=== PATIENT | male | born 1985 | race Caucasian/White ===

== ENCOUNTER → 2020-06-16 13:37 | Outpatient (BNVA) | payer OTHER, SELFPAY | PROVIDERS: PCP Internal Medicine Endocrinology, Diabetes & Metabolism; Visit Provider Internal Medicine Gastroenterology | DX: Z76.89 Persons encountering health services in other specified circumstances (principal) ==

== ENCOUNTER → 2020-12-18 12:56 | Outpatient (BNVA) | payer OTHER, SELFPAY | PROVIDERS: PCP Internal Medicine Endocrinology, Diabetes & Metabolism; Visit Provider Internal Medicine Gastroenterology ==

== ENCOUNTER 2024-08-22 12:49 | Outpatient (AMB) | payer OTHER, SELFPAY ==
[2024-08-22 12:51] VITALS: BP 116/76; PULSE 61; O2SAT 97; BMI 28.2
--- NOTE | 2024-08-22 12:51 | A.OFFPC_ITS ---
Vital Signs 08/22/24 12:51 Height 6 ft 4 in Weight 232 lb BMI 28.2 BP 116/76 Blood Pressure Location Lt brachial Position Sitting Pulse 61 Pulse Source Pulse Oximeter Pulse Oximetry (%) 97 Oxygen Delivery Method Room Air Intake Visit Reasons: establish [facility] Heater Operator Helper Required: No Accompanied by: Self / Same As Patient Allergies No Known Allergies Allergy (Verified 08/22/24 13:01) Medication List - Last Reconciled 08/22/24 by GAURAV Vegas lansoprazole 30 mg PO BID Tobacco use date assessed: 08/22/24 Dental Screening Dental Screen Date: 08/22/24 Did you have a dental visit in the last 12 months?: Yes Did you have a dental problem in the last 6 months where you did not have access to dental care?: No Was dental information given to patient?: Patient has dentist HPI [facility] HPI Details Previous PCP: Dr. Pilar Duval Last visit: over a year ago Last PE: same Specialist: GI (Dr. Bartlett) OBGYN:n/a Past medical history: GERD Medications: Lansoprazole Family HX:father 2 uncles and grandfather colon ca, but his father does not carrier the gene, father side, hld, htn, father and uncles had triple bypass, aunt has stroke, father has 5 stent at 40 years old Problem: Patient is a 39 year male was presenting to [facility] Patient reports that he has been getting more tired than usual and would like to get his testosterone checked He reports that he does have a history of asthma but he has been getting sob more frequently Reports that due to his strong familial cardiac history he would like to be evaluated by Cardiology reports quit smoking 12 days ago, but he has been doing zyn to supplement and now he is 3 days into quitting that as well reports being dx with ADHD as a kid, now that he is working behind a computer, he is struggling reports that he would like to be referred to someone who could talk to him about strattera The patient is also requesting a diving board assembler referral: He reports that he has a ongoing rash underneath left axilla The patient reports that his neighbor is a diving board assembler and he told him to put Vaseline and to change his deodorant The patient also reports that he have a small black spot on his bottom lip that has been there for 4 years. Reports that the area did not get any bigger, but he thinks that it faded some. PFSH Medical History GERD (gastroesophageal reflux disease) Asthma Hiatal hernia (~08/22/24) Erosive esophagitis History of esophageal ulcer Surgical History Hx of endoscopy Family History (Updated 08/22/24 @ 21:32 by GAURAV Vegas) Father History of high cholesterol Hx of congenital heart disease Mother Hx of breast cancer Paternal Grandfather Colon cancer Paternal Uncle Colon cancer Father HLD (hyperlipidemia) HTN (hypertension) Heart disease Paternal Uncle Heart disease Social History Household Members: Spouse and Children Housing: House Alcohol intake: current Alcohol intake frequency: holidays/special occasions only Patient Tobacco Use Status: Former Tobacco user e-Cigarette/Vaping Use: Never Used service: No Current occupational status: employed Current occupational exposures/hazards: No Cognitive needs: No Hearing needs: No Vision needs: No Questionnaire PHQ-9 Over the last 2 weeks, how often have you been bothered by any of the following problems? 1. Little interest or pleasure in doing things: not at all 2. Feeling down, depressed, or hopeless: not at all 3. Trouble falling or staying asleep, or sleeping too much: not at all 4. Feeling tired or having little energy: several days 5. Poor appetite or overeating: not at all 6. Feeling bad about yourself - or that you are a failure or have let yourself or your family down: not at all 7. Trouble concentrating on things, such as reading the newspaper or watching television: several days 8. Moving or speaking so slowly that other people could have noticed. Or the opposite - being so fidgety or restless that you have been moving around a lot more than usual: not at all 9. Thoughts that you would be better off or of hurting yourself in some way: not at all Total score: 2 Source: Developed by Drs. Juan Alberto Araujo, Connie Chacon, Alex Santos and colleagues, with an educational senia from [employer]. Thrive Questionnaire Date Thrive assessed: 08/22/24 I am a: Patient What is your living situation today?: I have a steady place to live Within the past 12 months, did the food you bought not last and you didn't have the money to get more?: Never true Within the past 12 months, did you worry whether your food would run out before you got money to buy more?: Never true Do you have trouble paying for medicines?: No Do you have trouble getting transportation to medical appointments?: No Do you have trouble paying your heating and electricity bill?: No Do you have trouble taking care of your child, family member or friend?: No Do you have trouble with day-to-day activities such as bathing, preparing meals, shopping, managing finances, etc.?: No Are you currently unemployed and looking for a job?: No Are you interested in more education?: No Please select the resources that you would like help with: None Currently or been in a relationship where the following occur: No concerns reported THRIVE Score: 0 AUDIT C Alcohol Use Questionnaire (AUDIT-C) 1. How often do you have a drink containing alcohol?: 2-4 times a month 2. How many drinks containing alcohol do you have on a typical day when you are drinking?: 1 or 2 3. How often do you have six or more drinks on one occasion?: Less than monthly Total Score: 3 LEWIS-7 AMB Questionnaire LEWIS-7 Date LEWIS - 7 assessed: 08/22/24 Feeling nervous, anxious, or on edge: 0 = Not at all Not being able to stop or control worryin = Not at all Worrying too much about different things: 0 = Not at all Trouble relaxin = Not at all Being so restless that it is hard to sit still: 0 = Not at all Becoming easily annoyed or irritable: 0 = Not at all Feeling afraid as if something awful might happen: 0 = Not at all Total LEWIS-7 score (0-4 normal; 5-9 mild; 10-14 moderate; 15-21 severe): 0 Source: Developed by Drs. Juan Alberto Araujo, Connie Chacon, Alex Santos and colleagues, with an educational senia from [employer]. LEWIS-7 Assessment Billing LEWIS-7 Assessment Tool: LEWIS-7 Assessment 47428 Review of Systems Const Details: Denies chills, +fatigue, Denies fever(s), Denies headache(s) and Denies weakness HEENT Denies change in vision, Denies dizziness, Denies headache(s), Denies hearing loss, Denies nasal congestion, Denies sinus pain, Denies sinus pressure and Otilio es sore throat other: small black area on bottom lip Card Denies chest pain, Denies lightheadedness, Denies other (palpitations) Resp Denies cough, +dyspnea (hx of asthma, but feels like he is getting sob quick than he did before) and Denies wheezing GI Denies abdominal pain, Denies melena, Denies hematochezia, Denies change in bowel habits, Denies dyspepsia and Denies nausea Denies hematuria and Denies dysuria Musc Denies abnormal gait, Denies myalgias, Denies arthralgias, Denies numbness and Denies tingling Skin/Breast Denies rash, Denies unusual bruising and Denies wounds Neuro Denies abnormal gait, Denies dizziness, Denies headache(s), Denies memory loss, Denies numbness, Denies Sensory deficit (Neuro), Denies tingling and Denies weakness Psych Denies anxiety, Denies depression and Denies memory loss Endo Denies cold intolerance, Denies fatigue, Denies heat intolerance, Denies polydipsia and Denies polyuria Jose/Lymph Denies easy bleeding and Denies easy bruising Aller/Immun Denies wheezing Physical exam (Primary Care) Vital Signs: Last Vital Signs Pulse 61 08/22/24 12:51 BP 116/76 08/22/24 12:51 Pulse Ox 97 08/22/24 12:51 Oxygen Delivery Method Room Air 08/22/24 12:51 BMI result Body Mass Index 28.2 Tobacco/Smoking Status: Tobacco use Status Tobacco use date assessed 08/22/24 08/22/24 12:54 Patient Tobacco Use Status Former Tobacco user 08/22/24 12:54 e-Cigarette/Vaping Use Never Used 08/22/24 12:58 PHQ-9: PHQ-9 Score PHQ-9: Total score 2 08/22/24 13:25 Thrive Assessment: Date of Thrive Assessment Date Thrive assessed 08/22/24 08/22/24 12:54 Currently or been in a relationship where the following occur: No concerns reported Const Other: General: no acute distress, well developed, alert and awake Nutritional Appearance: well nourished Orientation/consciousness: patient oriented x3 [facility] Head: Yes normocephalic and Yes atraumatic Ears: hearing grossly normal bilaterally and TM's normal bilaterally General nose exam: Normal external nose present and Normal nares present Mouth: Normal oral and palatal mucosa present and moist mucous membranes Teeth and gingiva: dentition normal Throat: Yes oropharynx normal Eyes Pupils: Equal, round and reactive pupils present and Pupil accommodation reflex normal EOM: EOMs intact bilaterally Neck Neck: Yes normal visual inspection, Yes no lymphadenopathy and Yes trachea midline Thyroid: Thyroid normal Resp Effort & Inspection: normal respiratory effort Auscultation: clear to auscultation bilaterally Cardio Rate: regular rate Rhythm: regular rhythm Heart sounds: S1 normal heart sound present, S2 normal heart sound present, no gallops, no murmurs and no rubs GI Palpation (GI):abdomen soft and nontender to palpation Auscultation: normal bowel sounds General: Yes no CVA tenderness Back/Spine/Pelvis Back: no CVA tenderness Cervical Spine: cervical ROM normal and No Cervical spine tenderness Thoracic/Lumbar Spine: thoraco-lumbar ROM normal, No pain with thoraco-lumbar ROM, No thoracic spinal tenderness and No lumbar spinal tenderness Skin General: warm and dry. Normal skin color. Normal skin turgor Lesions: no lesions Nails: normal Neuro General: patient oriented x3, gait normal Cranial nerves: Yes Equal, round and reactive pupils present Cognition (Neuro): normal cognition Gait exam (Neuro): Normal gait present Extrem General: Yes normal to inspection, No edema and No calf tenderness Psych Appearance: grossly normal Affect: normal affect Attitude: cooperative Thought process: Normal thought process present Coding Level of Care Code New Pt Level 4 (84479) Diagnoses Gastroesophageal reflux disease with esophagitis, unspecified whether hemorrhage K21.00 Esophagitis presence: with esophagitis Esophagitis bleeding: unspecified whether hemorrhage Asthma, unspecified asthma severity, unspecified whether complicated, unspecified whether persistent J45.909 Asthma severity: unspecified severity Asthma persistence: unspecified Asthma complication type: unspecified Hiatal hernia K44.9 Familial heart disease I51.89 Eczema intertrigo L30.4 Fatigue, unspecified type R53.83 Fatigue type: unspecified Disorder of lip K13.0 Attention deficit hyperactivity disorder (ADHD), unspecified ADHD type F90.9 Attention deficit-hyperactivity disorder type: unspecified Additional Codes LEWIS-7 Assessment Billing - LEWIS-7 Assessment Tool: LEWIS-7 Assessment 98846 ([id number]) Time Spent (min) 42 Assessment & Plan Assessment & Plan (1) GERD (gastroesophageal reflux disease): Code(s): K21.9 - Gastro-esophageal reflux disease without esophagitis Category: Medical Qualifiers: Esophagitis presence: with esophagitis Esophagitis bleeding: unspecified whether hemorrhage Qualified Code(s): K21.00 - Gastro-esophageal reflux disease with esophagitis, without bleeding Plan: The patient used to be followed by GI but have not followed up in a while. He has been taking Lansoprazole 30 mg daily with positive effect. Reinforced dietary restriction. Refrain from eating close to bed time (2) Asthma: Code(s): J45.909 - Unspecified asthma, uncomplicated Category: Medical Qualifiers: Asthma severity: unspecified severity Asthma persistence: unspecified Asthma complication type: unspecified Qualified Code(s): J45.909 - Unspecified asthma, uncomplicated Plan: The patient reports hx of asthma. Reports that this only bothers him when he is sick with a respiratory illness Albuterol sulfate 90 mcg/actuation 2 pffus inh Q4-6H PRN ordered (3) Hiatal hernia: Onset Date: ~08/22/24 Code(s): K44.9 - Diaphragmatic hernia without obstruction or gangrene Category: Medical Plan: The patient reports that he was seeing GI and they wanted him to do surgery but he changed his eating habits and loss some weight and his symptoms completely improved so he decided not to go ahead with the surgery (4) Familial heart disease: Code(s): I51.89 - Other ill-defined heart diseases Category: Medical Plan: The patient reports that he father had 5 stents by the time he was 40 years old and all of his paternal uncles had triple bypass Will refer the patient to cardiology for a cardiac evaluation (5) Eczema intertrigo: Code(s): L30.4 - Erythema intertrigo Category: Medical Plan: He reports a hx of eczema. He c/o rash in left axilla that is consistent with fungal. The patient reports that it is itchy. clotrimazole-betamethasone 1-0.05% topical BID (6) Fatigue: Code(s): R53.83 - Other fatigue Category: Medical Qualifiers: Fatigue type: unspecified Qualified Code(s): R53.83 - Other fatigue Plan: Testosterone levels ordered along with other labs (7) Disorder of lip: Code(s): K13.0 - Diseases of lips Category: Medical Plan: small dark spot to bottom lip. Reports that this area been there for about 4 years now. The size remains the same but the color faded some. The patient is requesting to see dermatology. Referral was placed (8) ADHD (attention deficit hyperactivity disorder): Code(s): F90.9 - Attention-deficit hyperactivity disorder, unspecified type Category: Medical Qualifiers: Attention deficit-hyperactivity disorder type: unspecified Qualified Code(s): F90.9 - Attention-deficit hyperactivity disorder, unspecified type Plan: reports being dx with ADHD as a kid, now that he is working behind a computer, he is struggling reports that he would like to be referred to someone who could talk to him about strattera Orders: Orders Comprehensive [place]. Panel Fast Today J45.909 - Unspecified asthma, uncomplicated, K21.9 - Gastro-esophageal reflux disease without esophagitis, R53.83 - Other fatigue, Z00.00 - Encounter for general adult medical examination without abnormal findings Glucose Fasting Today J45.909 - Unspecified asthma, uncomplicated, K21.9 - Gastro-esophageal reflux disease without esophagitis, R53.83 - Other fatigue, Z00.00 - Encounter for general adult medical examination without abnormal findings TSH reflex Free T4 Today J45.909 - Unspecified asthma, uncomplicated, K21.9 - Gastro-esophageal reflux disease without esophagitis, R53.83 - Other fatigue, Z00.00 - Encounter for general adult medical examination without abnormal findin gs UA CC w/rflx Micro + Cult Today J45.909 - Unspecified asthma, uncomplicated, K21.9 - Gastro-esophageal reflux disease without esophagitis, R53.83 - Other fatigue, Z00.00 - Encounter for general adult medical examination without abnormal findings Lipid Panel Today J45.909 - Unspecified asthma, uncomplicated, K21.9 - Gastro- esophageal reflux disease without esophagitis, R53.83 - Other fatigue, Z00.00 - Encounter for general adult medical examination without abnormal findings Complete Blood Count Auto Diff Today J45.909 - Unspecified asthma, uncomplicated, K21.9 - Gastro-esophageal reflux disease without esophagitis, R53.83 - Other fatigue, Z00.00 - Encounter for general adult medical examination without abnormal findings Vitamin D 25-OH Total Today J45.909 - Unspecified asthma, uncomplicated, K21.9 - Gastro-esophageal reflux disease without esophagitis, R53.83 - Other fatigue, Z00.00 - Encounter for general adult medical examination without abnormal findings PSA,Total (Free>4and<10) Today J45.909 - Unspecified asthma, uncomplicated, K21.9 - Gastro-esophageal reflux disease without esophagitis, R53.83 - Other fatigue, Z00.00 - Encounter for general adult medical examination without abnormal findings Referrals Psychiatry Referral F90.9 - Attention-deficit hyperactivity disorder, unspecified type Cardiology Referral I51.89 - Other ill-defined heart diseases Dermatology Referral K13.0 - Diseases of lips, L30.4 - Erythema intertrigo Medications: New clotrimazole-betamethasone 1-0.05 % 1 appl topical BID 15 grams 1RF albuterol sulfate 90 mcg/actuation 2 puffs inhalation Q4-6H PRN 8.5 grams 2RF shortness of breath or wheezing lansoprazole 30 mg PO DAILY 90 caps 2RF Discontinued lansoprazole Discontinued Reason: Duplicate 30 mg PO BID 180 caps 0RF K21.9 - Gastro- esophageal reflux disease without esophagitis
--- OUTSIDE RECORDS SUMMARY | 2024-08-22 15:40 | XMS_ITS ---
Author Organization [facility] Address [address] [place] [address] Care Team Providers Care Retail Service Representative Name Role Phone BROOKLYN BEAVER Unavailable [phone] Encounters Encounter Location Date Provider Diagnosis [facility] [address] [place] [address] 04/16/2024 BROOKLYN BEAVER PLAN OF TREATMENT No Information Progress Notes * JOYCE JarredwinDOB:1985 (39 yo M)Acc No.[id number]:04/16/2024 Progress Notes Patient:??Brayden NEWMAN Provider:??BROOKLYN BEAVER PA-C :1985?Age:38 Y?Sex:Ma le Date:04/16/2024 Address:[address] [id number] Subjective: * Chief Complaints: * ? * Medical History:?? Objective: Assessment: Plan: * Treatment: * Images: Billing Information: * Visit Code:?? * Procedure Codes:?? * Sign off status: Pending * Provider:??BROOKLYN BEAVER PA-C Date:??
--- OUTSIDE RECORDS SUMMARY | 2024-08-22 15:40 | XMS_ITS ---
Author Organization [facility], [facility] Address [address] [place] [id number] Care Team Providers Care Supervisor Agency Appointments Name Role Phone DEX DUVAL Primary Care Provider [phone] ALLERGIES No Known Allergies REASON FOR VISIT Annual CPE MEDICATIONS Medication SIG (Take, Route, Frequency, Duration) Notes Start Date End Date Status Albuterol Sulfate HFA 108 (90 Base) MCG/ACT 1 puff as needed Inhalation every 4 hrs Active Lansoprazole 30 MG 1 tablet Orally Once a day Active Zithromax Z-Calos 250 MG 2 tabs once on da y one, then 1 tab once daily for remaining until gone Orally once a day for 5 days 05/27/2023 Active SOCIAL HISTORY Tobacco Use: Social History Observation Description Date Details (start date - stop date) Former Smoker NA - NA Sex Assigned At : Social History Observation Description Sex Assigned At Male Tobacco Use/Smoking Question Answer Notes Tobacco use: former smoker How long has it been since you last smoked? > 10 years Section Notes: Lives in [place], [place] with & children Encounters Encounter Location Date Provider Diagnosis [facility], [address] [phone] 09/19/2023 DEX DUVAL Annual physical exam Z00.00 ASSESSMENTS Encounter Date Diagnosis Assessment Notes Treatment Notes Treatment Clinical Notes Section Notes 09/19/2023 Annual physical exam (ICD-10 - Z00.00) PLAN OF TREATMENT Next Appt Details Follow Up: PLEASE CALL PT TO REBOOK CPE, Reason: Progress Notes * SAM COOKDOB:1985 (38 yo M)Acc No.[id number]:09/19/2023 Progress Note Patient:??JOYCE SAM Provider:??Dex Duval DNP :1985?Age:38 Y?Sex:Ronak le Date:09/19/2023 Phone: Address:[address], [place], [id number] Subjective: * Chief Complaints: * ?Annual CPE * HPI: ?Patient Care Team:? Providers/Specialists: No others at this time. ?Visit info:? Jarred presents to office today for his annual physical exam. * Medical History:?? * Surgical History:?? * Ocular Surgical History:?? * Hospitalization/Major Diagno stic Procedure:??Diverticulitis - 1 week @ [facility]. 04/2022 * Family History:??Father: ali ve, Pericarditis, Stents, Melanoma.??Mother: alive, Breast CA.??Paternal Grandfather: , Heart attack.??Paternal Grandmother: , Heart disease.??Maternal Grandmother: , Dementia.??Sister: alive, No known health concerns.??1 son(s) , 1 daughter(s) - healthy. .?? Son w/asthma. * Social History:?Tobacco Use:?Tobacco Use/Smoking?Tobacco use:??former smoker ?How long has it been since you last smoked???> 10 years ?Drugs/Alcohol:?Do you smoke marijuana?: Admits - Gummies for sleep occasionally. ?Do you drink alcohol?: Yes, Socially. ?Lives in [place], [place] with & children. * Medications:??TakingAlbutero l Sulfate HFA 108 (90 Base) MCG/ACT Aerosol Solution 1 puff as needed Inhalation every 4 hrs Lansoprazole 30 MG Tablet Delayed Release Disintegrating 1 tablet Orally Once a day Zithromax Z-Calos 250 MG Tablet 2 tabs once on day one, then 1 tab once daily for remaining until gone Orally once a day Taking Albuterol Sulfate HFA 108 (90 Base) MCG/ACT Aerosol Solution 1 puff as needed Inhalation every 4 hrs Taking Lansoprazole 30 MG Tablet Delayed Release Disintegrating 1 tablet Orally Once a day Taking Zithromax Z-Calos 250 MG Tablet 2 tabs once on day one, then 1 tab once daily for remaining until gone Orally once a day * Allergies:??N.K.D.A.no[Aller gies Verified] Objective: Assessment: * Assessment: 1.??Annual physical exam - Z (Primary)?? Plan: * Treatment: * Procedure Codes:?? * Preventive Medicine:?Last CPE: 1 year ago @ [facility] ?Colonoscopy: No ?Endoscopy: Yes, recently for Diverticulitis ?Flu Vac: No ?Covid Vac: Yes & 1 booster. * Follow Up:??PLEASE CALL PT T O REBOOK CPE Care Plan: * Problems:?? * Billing Information: * Visit Code:?? * Procedure Codes:?? * Sign off status: Completed true * Provider:??Dex Duval DNP Date:??0 09/19/2023 History and Physical Notes * HPI (History of Present Illness) Category Sub-Category Detail Notes Category Not es Patient Care Team Providers/ Specialists: No others at this time Visit info Jarred presents t o office today for his annual physical exam.
--- OUTSIDE RECORDS SUMMARY | 2024-08-22 15:40 | XMS_ITS | Clinical Summary ---
Author Organization [facility] Address [address] [place] [address] Care Team Providers Care Inflated Ball Molder Name Role Phone Jax Bocanegra MD Primary Care Provider Unavail able Surgical History Surgery Date Site/Laterality Comments UPPER GASTROINTESTINAL ENDOSCOPY 12/24/13 Dr Chahal PROCEDURE: [place] UPPER GI ENDOSCOPY PERFORMED; COMMENT: severe distal esophagitis MULTIPLE TOOTH EXTRACTIONS PROCEDURE: HISTORICAL DENTAL EXTRACTION ESOPHAGOGASTRODUODENOSCOPY 06/16/2015 PROCEDURE: [place] ESOPHAGOGASTRODUODENOSCOPY TRANSORAL DIAGNOSTIC; COMMENT: Grade D esophagitis distal esophagus, hiatal hernia Medical History Medical History Date Comments Unspecified asthma(493.90) 01/10/2007 DX:Un specified asthma(493.90) Allergic rhinitis, cause unspecified 01/10/2007 DX:Allergic rhinitis, cause unspecified Substance abuse ([facility]) 12/16/2010 DX:Sub stance abuse ([facility]) Esophageal reflux DX:Esophageal reflux Family History Medical History Relation Name Comments Other: Other Father stent, high cho lesterol Breast cancer Mother Other: Other Mother alive and well Blindness Neg Hx Cataracts Neg Hx Glaucoma Neg Hx Macular degeneration Neg Hx Strabismus Neg Hx Relation Name Status Comments Father Alive Mother Alive Social History Tobacco Use Types Packs/Day Years Used Date Smoking Tobacco: Former Cigarettes 1 7.6 1 - 01/13/2011 Smokeless Tobacco: Never Alcohol Use Standard Drinks/Week Comments Yes 0 (1 standard drink = 0.6 oz pur e alcohol) Sex and Gender Information Value Date Recorded Sex Assigned at Not on file Legal Sex Male 10:26 AM EST Gender Identity Not on file Sexual Orientation Not on file Obstetrics History Last Filed Vital Signs Vital Sign Reading Time Taken Comments Blood Pressure 122/67 07/15/2022 8:09 AM EST Pulse 62 07/15/2022 8:09 AM EST Temperature - - Respiratory Rate - - Oxygen Saturation - - Inhaled Oxygen Concentration - - Weight 103 kg (226 lb 8 oz) 07/15/2022 8:[address] Height 193 cm (6' 4 ) 07/15/2022 8:09 AM EST Body Mass Index 27.57 07/15/2022 8:09 AM EST Plan of Treatment Health Maintenance Due Date Last Done Comments Hepatitis A Vaccines (3 of 4 - Hep A Twinrix risk 4-dose series) 01/27/2011 01/13/2011, 12/23/2010 Hepatitis B Vaccines (3 of 4 - Hep B Twinrix 4-dose series) 01/27/2011 01/13/2011, 12/23/2010 Pneumococcal Vaccine: Pediatrics (0 to 5 Years) and At-Risk Patients (6 to 64 Years) (2 of 2 - PCV) 02/03/2019 02/03/2018 Cholesterol Screening (Lipid Panel) 05/25/2022 Depression Screening 05/25/2022 HIV Screening 05/25/2022 Hepatitis C Screening 05/25/2022 Social Influencers of Health Screening 05/25/2022 COVID-19 Vaccine ( season) 2024 Influenza Vaccine (#1) 2024 0, 04/11/2015, 04/22/2011, Additional history exists DTaP,Tdap,and Td Vaccines (3 - Td or Tdap) 04/21/2030 04/21/2020, 12/16/2010 HIB Vaccines Aged Out No longer eligi ble based on patient's age to complete this topic HPV Vaccines Aged Out No longer eligi ble based on patient's age to complete this topic IPV Vaccines Aged Out No longer eligi ble based on patient's age to complete this topic MMR Vaccines Aged Out No longer eligi ble based on patient's age to complete this topic Meningococcal ACWY Vaccine Aged Out N o longer eligible based on patient's age to complete this topic Meningococcal B Vacine Aged Out No lo nger eligible based on patient's age to complete this topic RSV Immunization Patients Under 20 months Aged Out No longer eligible based on patient's age to complete this topic Varicella Vaccines Aged Out No longer eligible based on patient's age to complete this topic Care Teams Inflated Ball Molder Relationship Specialty Start Date End Date Jax Bocanegra MD PCP - General Internal Medicine 01/27/15
--- OUTSIDE RECORDS SUMMARY | 2024-08-22 15:40 | XMS_ITS ---
Author Organization [facility], [facility] Address [address] [place] [phone] Care Team Providers Care Sql Report Writer Name Role Phone DEX CONNORS Primary Care Provider [phone] Reina Zhou Unavailable [phone] ALLERGIES No Known Allergies REASON FOR VISIT CPE MEDICATIONS Medication SIG (Take, Route, Frequency, Duration) Notes Start Date End Date Status Albuterol Sulfate HFA 108 (90 Base) MCG/ACT 1 puff as needed Inhalation every 4 hrs Active Zithromax Z-Calos 250 MG 2 tabs once on da y one, then 1 tab once daily for remaining until gone Orally once a day for 5 days 05/27/2023 Active Lansoprazole 30 MG 1 tablet Orally Once a day Active SOCIAL HISTORY Tobacco Use: Social History Observation Description Date Details (start date - stop date) Former Smoker NA - NA Sex Assigned At : Social History Observation Description Sex Assigned At Male Tobacco Use/Smoking Question Answer Notes Tobacco use: former smoker How long has it been since you last smoked? > 10 years Section Notes: Lives in [place], [place] with & children Encounters Encounter Location Date Provider Diagnosis [address] [phone] 09/06/2023 Reina Zhou PLAN OF TREATMENT No Information Progress Notes * SAM COOKDOB:1985 (39 yo M)Acc No.[id number]:09/06/2023 Progress Note Patient:??SAM COOK Provider:??Reina Zhou DNP :1985?Age:38 Y?Sex:Ma le Date:09/06/2023 Phone: Address:[address], [id number] Pcp:DEX CONNORS Subjective: * Chief Complaints: * ?1. CPE. * HPI: ?Patient Care Team:? Providers/Specialists: No others at this time. * Medical History:??Hyperlipid emia, Polyarthritis, Diverticulitis. * Hospitalization/Major Diagno stic Procedure:??Diverticulitis - 1 week @ [facility]. 04/2022. * Family History:??Father: ali ve, Pericarditis, Stents, Melanoma.??Mother: alive, Breast CA.??Paternal Grandfather: , Heart attack.??Paternal Grandmother: , Heart disease.??Maternal Grandmother: , Dementia.??Sister: alive, No known health concerns.??1 son(s) , 1 daughter(s) - healthy. .?? Son w/asthma. * Social History:?Tobacco Use:??Tobacco Use/Smoking??Tobacco use:??former smoker,??How long has it been since you last smoked???> 10 years.?Drugs/Alcohol:??Do you smoke marijuana?: Admits - Gummies for sleep occasionally. Do you drink alcohol?: Yes, Socially. ?Lives in [place], [place] with & children. * Medications:??Taking Albuter ol Sulfate HFA 108 (90 Base) MCG/ACT Aerosol Solution 1 puff as needed Inhalation every 4 hrs , Taking Lansoprazole 30 MG Tablet Delayed Release Disintegrating 1 tablet Orally Once a day , Taking Zithromax Z-Calos 250 MG Tablet 2 tabs once on day one, then 1 tab once daily for remaining until gone Orally once a day * Allergies:??N.K.D.A. Objective: Assessment: Plan: * Treatment: * Preventive Medicine:?Last CPE: 1 year ago @ [facility] Colonoscopy: No Endoscopy: Yes, recently for Diverticulitis Flu Vac: No Covid Vac: Yes & 1 booster. Care Plan: * Problems:?? * Billing Information: * Visit Code:?? * Procedure Codes:?? * Sign off status: Pending * Provider:??Reina Zhou DNP Date:??05/2024 History and Physical Notes * HPI (History of Present Illness) Category Sub-Category Detail Notes Category Not es Patient Care Team Providers/ Specialists: No others at this time
--- OUTSIDE RECORDS SUMMARY | 2024-08-22 15:41 | XMS_ITS | Patient Health Record ---
Author Organization [facility] Address [address] [place] [phone] Care Team Providers Care Foreign Exchange Services Manager Name Role Phone DEX CONNORS Primary Care Provider Reina Zhou Unavailable [phone] ALLERGIES No Known Allergies REASON FOR REFERRAL No Information MEDICATIONS Medication SIG (Take, Route, Frequency, Duration) Notes Start Date End Date Status Albuterol Sulfate HFA 108 (90 Base) MCG/ACT 1 puff as needed Inhalation every 4 hrs Active Azithromycin 250 MG as directed Orally 2 tabs once on day one, then take1 tab orally once daily until completed for 5 days 10/10/2023 Active Lansoprazole 30 MG 1 tablet Orally [...] > 10 years Section Notes: Lives in [place], [place] with & children Lives in [place] with & children Lives in [place] with & children Lives in [place] with & children Lives in [place] with & children Lives in [place] with & children Lives in [place] with & children PROBLEMS Problem Type ICD Code Onset Dates Problem Status W/U Status Risk SNOMED Code Notes Problem Polyarthritis, unspecified (M13.0) Active confirmed Polyarth ritis (857124225) Problem Hypercholesterolemia (E78.00) Active confirmed Hypercholestero lemia (83280749) Encounters Encounter Location Date Provider Diagnosis [facility] [place] [phone] 09/06/2023 Reinakavita Zhou [facility] [address] [place] [phone] 09/19/2023 DEX CONNORS Annual physical exam Z00.00 [facility] [address] [place] [phone] 10/10/2023 DEX CONNORS ASSESSMENTS Encounter Date Diagnosis Assessment Notes Treatment Notes Treatment Clinical Notes Section Notes 09/19/2023 Annual physical exam (ICD-10 - Z00.00) PLAN OF TREATMENT Pending Test Test Name Order Date Thyroid Panel With TSH 07/16/2022 Uric Acid, Serum 07/16/2022 Hemoglobin A1c 07/16/2022 Dehydroepiandrosterone (DHEA) 07/16/2022 Vitamin D, 25-Hydroxy 07/16/2022 Sex Horm Binding Glob, Serum 07/16/2022 Testosterone,Free and Total 07/16/2022 Insulin, Free and Total, Serum Apo A1 + B + Ratio 07/16/2022 Lipid Panel 07/16/2022 Comp. Metabolic Panel (14) 07/16/2022 CBC 07/16/2022 Insurance Providers Payer Name Payer Address Payer Phone Subscriber Number Group Number Insured Name Patient Relationship to Insured Coverage Start Date Coverage End Date [address] [place] [address] [place] [phone] [id number] SAM COOK Self - patient is the insured 0 MEDICAL (GENERAL) HISTORY Medical History History ICD Code Hyperlipidemia Polyarthritis Diverticulitis Hospitalization History Reason Date(Month/Year) Diverticulitis - 1 week @ [facility]
--- OUTSIDE RECORDS SUMMARY | 2024-08-22 15:41 | XMS_ITS ---
Author Organization [facility], [facility] Address [address] [place] [phone] Care Team Providers Care Cutter Helper Name Role Phone DEX CONNORS Primary Care Provider REASON FOR VISIT Strep Throat MEDICATIONS Medication SIG (Take, Route, Fr equency, Duration) Notes Start Date End Date Status Azithromycin 250 MG as directed Orally 2 tabs once on day one, then take1 tab orally once daily until completed for 5 days 10/10/2023 Active SOCIAL HISTORY Sex Assigned At : Social History Observation Description Sex Assigned At Male Encounters Encounter Location Date Provider Diagnosis [address] [phone] 10/10/2023 DEX CONNORS PLAN OF TREATMENT Medication Medication Name Sig Start Date Stop Date Notes Azithromycin 250 MG as directed Orally 2 tabs once on day one, then take1 tab orally once daily until completed for 5 days 10/10/2023 Progress Notes * JOYCESAMDOB:1985 (38 yo M)Acc No.[id number]:10/10/2023 Patient:??SAM COOK :1985?Age:38 Y?Sex:Ronak boaz Phone: Address:[address] [place] [address] * Refills?? Start Azithromycin Tablet, 250 MG, Orally, 6, as directed, 2 tabs once on day one, then take1 tab orally once daily until completed, 5 days, Refills=0 * true * Date:??
--- OUTSIDE RECORDS SUMMARY | 2024-08-22 15:41 | XMS_ITS | Patient Health Record ---
Author Organization [facility] Address [address] [place] [address] Care Team Providers Care Screen Printing Loader Unloader Name Role Phone BROOKLYN BEAVER Unavailable [phone] REASON FOR REFERRAL No Information Encounters Encounter Location Date Provider Diagnosis [facility] [address] [place] [address] 04/16/2024 BROOKLYN BEAVER PLAN OF TREATMENT No Information Insurance Providers Payer Name Payer Address Payer Phone Subscriber Number Group Number Insured Name Patient Relationship to Insured Coverage Start Date Coverage End Date [facility] [address] [facility] [place] [id number] Brayden Newman Self - patient is the insured
== END 2024-08-22 13:35 | disposition home or self-care (01) ==
PROVIDERS: PCP Internal Medicine Endocrinology, Diabetes & Metabolism
DX: K21.00 Gastro-esophageal reflux disease with esophagitis, without bleeding (principal); J45.909 Unspecified asthma, uncomplicated; K44.9 Diaphragmatic hernia without obstruction or gangrene; I51.89 Other ill-defined heart diseases; L30.4 Erythema intertrigo; R53.83 Other fatigue; K13.0 Diseases of lips; F90.9 Attention-deficit hyperactivity disorder, unspecified type

== ENCOUNTER → 2024-08-22 12:49 | Outpatient (BNVA) | payer OTHER, SELFPAY | PROVIDERS: PCP Internal Medicine Endocrinology, Diabetes & Metabolism | DX: K21.00 Gastro-esophageal reflux disease with esophagitis, without bleeding (principal); J45.909 Unspecified asthma, uncomplicated; K44.9 Diaphragmatic hernia without obstruction or gangrene; I51.89 Other ill-defined heart diseases; L30.4 Erythema intertrigo; R53.83 Other fatigue; K13.0 Diseases of lips; F90.9 Attention-deficit hyperactivity disorder, unspecified type | CPT/HCPCS: 96127 ==

== ENCOUNTER 2024-09-11 07:32 | Outpatient (REF) | payer OTHER, SELFPAY ==
[2024-09-11 07:56] LABS: MANUAL DIFF FLAG NO
[2024-09-11 08:06] LABS: Basophils Percent Auto 0.6 % (0-2); Eosinophils Absolute Auto 0.2 X10*3/uL (0.0-0.4); Hematocrit 35.9 % (42.0-52.0); Hemoglobin 10.5 g/dl (14.0-18.0); Imm Gran Abs Auto 0.01 X10*3/uL (0.00-0.03); Imm Gran Pct Auto 0.2 % (0.0-0.4); Lymphocytes Absolute Auto 1.9 X10*3/uL (1.2-4.9); Lymphocytes Percent Auto 38.2 % (20-40); Mean Corpuscular HGB Conc 29.2 g/dl (31.0-36.0); Mean Corpuscular Hemoglobin 22.5 pg (27.0-33.0); Mean Corpuscular Volume 76.9 fL (80.0-98.0); Mean Platelet Volume 10.3 fL (9.4-12.4); Monocytes Absolute Auto 0.5 X10*3/uL (0.1-1.2); Monocytes Percent Auto 10.2 % (2-11); Neutrophils Absolute Auto 2.4 x10*3/uL (2.0-8.3); Neutrophils Percent Auto 46.8 % (45-73); Platelet Count 276 X10*3/uL (160-400); Red Blood Count 4.67 X10*6/uL (4.60-5.80); Red Cell Distribution Width 16.7 % (11.0-16.0)
[2024-09-11 08:12] LABS: Appearance Urine Turbid; Color Urine Yellow; Glucose Urine UA Negative (Negative); Leukocyte Esterase Urine Negative (Negative); Nitrite Urine Negative (Negative); PH 5.5 (5.0-9.0); Urine Blood Negative (Negative); Urine Ketones Negative (Negative); Urine Protein Negative (Neg-Trace)
[2024-09-11 08:52] LABS: Alanine Aminotransferase 19 U/L (0-40); Albumin Level 4.2 g/dL (3.5-5.0); Alkaline Phosphatase 79 U/L (39-117); Anion Gap 13 (12-20); Aspartate Amino Transferase 19 U/L (5-37); Bilirubin Total 0.6 mg/dL (0.0-1.0); Blood Urea Nitrogen 16 mg/dL (9-16); Calcium 8.8 mg/dL (8.4-10.2); Carbon Dioxide 25 mmol/L (22-29); Chloride 109 mmol/L (96-108); Cholesterol 192 mg/dL (<200); Estimated Glomerular Filt Rate > 60; Glucose Fasting 96 mg/dL (60-99); HDL Cholesterol 46 mg/dL (>40); LDL Cholesterol Calculated 116 mg/dL (<100); Potassium 4.5 mmol/L (3.3-5.1); Sodium 142 mmol/L (135-145); Total Protein 7.7 g/dL (6.5-8.0); Triglycerides 151 mg/dL (<150)
[2024-09-11 08:58] LABS: PSA,Total (Free>4and<10) 0.58 ng/mL (0.00-4.00)
[2024-09-11 09:06] LABS: Vitamin D 25-OH Total 47.9 ng/mL (>30)
== END 2024-09-11 07:33 | disposition home or self-care (01) ==
LOC: HO.LAB 07:32
DX: Z00.00 Encounter for general adult medical examination without abnormal findings (principal); K21.9 Gastro-esophageal reflux disease without esophagitis; J45.909 Unspecified asthma, uncomplicated; R53.83 Other fatigue; Z12.5 Encounter for screening for malignant neoplasm of prostate
CPT/HCPCS: 36415; 80053; 80061; 81003; 82306; 84153; 84443; 85025

== ENCOUNTER 2024-10-09 08:33 | Outpatient (AMB) | payer OTHER, SELFPAY ==
--- NOTE | 2024-10-09 08:45 | MHC.OFFWIV ---
Intake Vital Signs 10/09/24 08:46 Weight 234 lb BP 110/70 Blood Pressure Location Rt brachial Position Sitting Pulse 75 Pulse Source Pulse Oximeter Temp 98.6 F Temp Source Oral Pulse Oximetry (%) 98 Oxygen Delivery Method Room Air Intake Visit Reasons: EP Sore throat, fever Intake Note: Patient here for sore throat and fever for the past 2 days. Patient Tobacco Use Status: Former Tobacco user Allergies No Known Allergies Allergy (Verified 10/09/24 08:46) Do you need a note to return to daycare/school/sports/work: No HPI HPI Comments History of Present Illness Details History of Present Illness - The patient is a 39-year-old male presenting with sore throat and difficulty swallowing for 2 days. - The patient frequently experiences episodes (yearly) indicative of streptococcal pharyngitis, noting recurrent sore throat symptoms consistent with past strep throat diagnoses. - He encountered chills and suspected a fever last night, unverified by a thermometer. - Ibuprofen has been used as an urde-osl-wdzbtae relief, potentially affecting current temperature. - Absent symptoms include pain with swallowing, neck distress, lymphadenopathy, otalgia, and sinus discomfort. - There's also no accompanying cough. - Annual bouts of streptococcal pharyngitis occur with the patient having a history of similar pediatric conditions as his sister who underwent a tonsillectomy. Physical Exam General: Cooperative, healthy appearing, comfortable, no acute distress and well developed Orientation: Patient oriented x3 Limitations: No limitations Head: Normal to inspection Ears: Some wax present Nose: Normal External nose present Face and sinus: Normal facial exam Mouth: Posterior oropharyn erythema with exudates noted on exam Eyes: Appearance normal, both eyes and all related structures Neck: Normal visual inspection and Yes full ROM Respiratory: Normal respiratory effort and able to speak in complete sentences. Skin: No rashes or lesions noted Neuro: Patient oriented x3 Extremities: Normal to inspection [facility] Medical History GERD (gastroesophageal reflux disease) Asthma Hiatal hernia (~08/22/24) Erosive esophagitis History of esophageal ulcer Surgical History Hx of endoscopy Family History (Updated 08/22/24 @ 21:32 by GAURAV [place]) Father History of high cholesterol Hx of congenital heart disease Mother Hx of breast cancer Paternal Grandfather Colon cancer Paternal Uncle Colon cancer Father HLD (hyperlipidemia) HTN (hypertension) Heart disease Paternal Uncle Heart disease Social History Household Members: Spouse and Children Housing: House Alcohol intake: current Alcohol intake frequency: holidays/special occasions only Patient Tobacco Use Status: Former Tobacco user e-Cigarette/Vaping Use: Never Used service: No Current occupational status: employed Current occupational exposures/hazards: No Cognitive needs: No Hearing needs: No Vision needs: No Review of Systems Const All systems reviewed & are unremarkable except as noted in HPI and below Physical Exam Vital Signs: Last Vital Signs Temp 98.6 F 10/09/24 08:46 Pulse 75 10/09/24 08:46 BP 110/70 10/09/24 08:46 Pulse Ox 98 10/09/24 08:46 Oxygen Delivery Method Room Air 10/09/24 08:46 Assessment & Plan Assessment & Plan (1) Strep pharyngitis: Code(s): J02.0 - Streptococcal pharyngitis Plan: A confirmed positive rapid test for streptococcal pharyngitis was obtained. Streptococcal pharyngitis was confirmed; thus, the patient will initiate amoxicillin treatment, taking a 10-day course with doses every 12 hours, to be collected at the specified pharmacy. Due diligence with basic hygiene practices was advised to mitigate transmission risk, especially among his children. Considering the recurrent nature of his condition, exploration of an ENT consultation for potential tonsillectomy was recommended for discussion with his primary care provider, Reji Lopez NP. Consent was given for the current treatment strategy. Patient was informed and verbally consented to the use of an ambient scribe for clinic note documentation during this visit. Medications: New amoxicillin 500 mg PO Q12H 20 tabs 0RF Coding Level of Care Code Est Pt Level 3 (17032) Diagnoses Strep pharyngitis J02.0
[2024-10-09 08:46] VITALS: BP 110/70; PULSE 75; TEMP 37; O2SAT 98
--- OUTSIDE RECORDS SUMMARY | 2024-10-09 08:50 | XMS_ITS | Clinical Summary ---
Author Organization [facility] Address [address] [place] [address] Care Team Providers Care Regulatory Affairs Portfolio Leader Name Role Phone Jax Bocanegra MD Primary Care Provider Unavail able Surgical History Surgery Date Site/Laterality Comments UPPER GASTROINTESTINAL ENDOSCOPY 12/24/13 Dr Chahal PROCEDURE: [place] UPPER GI ENDOSCOPY PERFORMED; COMMENT: severe distal esophagitis MULTIPLE TOOTH EXTRACTIONS PROCEDURE: HISTORICAL DENTAL EXTRACTION ESOPHAGOGASTRODUODENOSCOPY 06/16/2015 PROCEDURE: [place] ESOPHAGOGASTRODUODENOSCOPY TRANSORAL DIAGNOSTIC; COMMENT: Grade D esophagitis distal esophagus, hiatal hernia Medical History Medical History Date Comments Unspecified asthma(493.90) 01/10/2007 DX:Un specified asthma(493.90) Allergic rhinitis, cause unspecified 01/10/2007 DX:Allergic rhinitis, cause unspecified Substance abuse ([facility] , [facility] V28) 12/16/2010 DX:Substance abuse ([facility]) Esophageal reflux DX:Esophageal reflux Family History Medical [...] of Health Screening 05/25/2022 COVID-19 Vaccine ( - season) 2024 Influenza Vaccine (Season Ended) 2025 04/21/2020, 04/11/2015, 04/22/2011, Additional history exists DTaP,Tdap,and Td [...] age to complete this topic Meningococcal B Vaccine Aged Out No l onger eligible based on patient's age to complete this topic RSV Immunization Patients Under 20 months Aged Out No longer eligible based on patient's age to complete this topic Varicella Vaccines Aged Out No longer eligible based on patient's age to complete this topic Care Teams Regulatory Affairs Portfolio Leader Relationship Specialty Start Date End Date Jax Bocanegra MD PCP - General Internal Medicine 01/27/15
--- OUTSIDE RECORDS SUMMARY | 2024-10-09 08:50 | XMS_ITS ---
Author Organization [facility], [facility] Address [address] [place] [phone] Care Team Providers Care Tangled Yarn Worker Name Role Phone DEX DUVAL Primary Care Provider [phone] ALLERGIES No Known Allergies REASON FOR VISIT [...] > 10 years Section Notes: Lives in [place], [place] with & children Encounters Encounter Location Date Provider Diagnosis [facility], [address] [id number] 09/19/2023 DEX DUVAL Annual physical exam Z00.00 ASSESSMENTS Encounter Date Diagnosis Assessment Notes Treatment Notes Treatment Clinical Notes Section Notes 09/19/2023 Annual physical exam (ICD-10 - Z00.00) PLAN OF TREATMENT Next Appt Details Follow Up: PLEASE CALL PT TO REBOOK CPE, Reason: Progress Notes * SAM COOKDOB:1985 (38 yo M)Acc No.[id number]:09/19/2023 Progress Note Patient:??JOYCE SAM Provider:??Dex Duval DNP :1985?Age:38 Y?Sex:Ronak le Date:09/19/2023 Phone: Address:[address] [place], [id number] Subjective: * Chief Complaints: * ?Annual CPE * HPI: ?Patient Care Team:? Providers/Specialists: No others at this time. ?Visit info:? Jarred presents to office today for his annual physical exam. * Medical History:?? * Surgical History:?? * Ocular Surgical History:?? * Hospitalization/Major Diagno stic Procedure:??Diverticulitis - 1 week @ [facility]. 04/2022 * Family History:??Father: ali ve, [...] you drink alcohol?: Yes, Socially. ?Lives in [place], [place] with & children. * Medications:??TakingAlbutero l [...]
--- OUTSIDE RECORDS SUMMARY | 2024-10-09 08:50 | XMS_ITS ---
Author Organization [facility], [facility] Address [address] [place] [phone] Care Team Providers Care Sign Erector And Repairer Name Role Phone DEX CONNORS Primary Care Provider [phone] Reina Zhou Unavailable [phone] ALLERGIES No Known Allergies REASON FOR VISIT [...] > 10 years Section Notes: Lives in [place], [place] with & children Encounters Encounter Location Date Provider Diagnosis [address] [id number] 09/06/2023 Reina Zhou PLAN OF TREATMENT No Information Progress Notes * SAM COOKDOB:1985 (39 yo M)Acc No.[id number]:09/06/2023 Progress Note Patient:??SAM COOK Provider:??Reina Zhou DNP :1985?Age:38 Y?Sex:Ma le Date:09/06/2023 Phone: Address:[address], [id number] Pcp:DEX CONNORS Subjective: * Chief Complaints: * ?1. CPE. * HPI: ?Patient Care Team:? Providers/Specialists: No others at this time. * Medical History:??Hyperlipid emia, Polyarthritis, Diverticulitis. * Hospitalization/Major Diagno stic Procedure:??Diverticulitis - 1 week @ [facility]. 04/2022. * Family History:??Father: ali ve, [...] you drink alcohol?: Yes, Socially. ?Lives in [place], [place] with & children. * Medications:??Taking Albuter [...]
--- OUTSIDE RECORDS SUMMARY | 2024-10-09 08:51 | XMS_ITS ---
Author Organization [facility], [facility] Address [address] [place] [phone] Care Team Providers Care Food Service Cashier Name Role Phone DEX CONNORS Primary Care Provider [phone] REASON FOR VISIT Strep Throat MEDICATIONS Medication [...] Male Encounters Encounter Location Date Provider Diagnosis [address] [phone] 10/10/2023 DEX CONNORS PLAN OF TREATMENT Medication Medication Name Sig Start Date Stop Date Notes Azithromycin 250 MG as directed Orally 2 tabs once on day one, then take1 tab orally once daily until completed for 5 days 10/10/2023 Progress Notes * JOYCESAMDOB:1985 (38 yo M)Acc No.[id number]:10/10/2023 Patient:??SAM COOK :1985?Age:38 Y?Sex:Ronak boaz Phone: Address:[address] [place] [address] * Refills?? Start Azithromycin Tablet, 250 MG, Orally, 6, as directed, 2 tabs once on day one, then take1 tab orally once daily until completed, 5 days, Refills=0 * true * Date:??
--- OUTSIDE RECORDS SUMMARY | 2024-10-09 08:51 | XMS_ITS ---
Author Organization [facility] Address [address] [place] [address] Care Team Providers Care Sed Middle School Teacher Name Role Phone SD BROOKLYN Unavailable [phone] Encounters Encounter Location Date Provider Diagnosis [facility] [address] [place] [address] 04/16/2024 BROOKLYN BEAVER PLAN OF TREATMENT No Information Progress Notes * JOYCE JarredwinDOB:1985 (39 yo M)Acc No.[id number]:04/16/2024 Progress Notes Patient:??Brayden NEWMAN Provider:??BROOKLYN BEAVER PA-C :1985?Age:38 Y?Sex:Ma le Date:04/16/2024 Address:[address] [place] [id number] Subjective: * Chief Complaints: * ? * Medical History:?? Objective: Assessment: Plan: * Treatment: * Images: Billing Information: * Visit Code:?? * Procedure Codes:?? * Sign off status: Pending * Provider:??BROOKLYN BEAVER PA-C Date:??
--- OUTSIDE RECORDS SUMMARY | 2024-10-09 08:51 | XMS_ITS | Patient Health Record ---
Author Organization [facility] Address [address] [place] [phone] Care Team Providers Care Outside Machinist Supervisor Name Role Phone WAYLONDEX Primary Care Provider [phone] ALLERGIES No Known Allergies REASON FOR REFERRAL [...] > 10 years Section Notes: Lives in [place], [place] with & children Lives in [place], [place] with & children Lives in [place], [place] with & children Lives in [place], [place] with & children Lives in [place], [place] with & children Lives in [place], [place] with & children Lives in [place], [place] with & children PROBLEMS Problem Type ICD Code Onset Dates Problem Status W/U Status Risk SNOMED Code Notes Problem Polyarthritis, unspecified (M13.0) Active confirmed Polyarth ritis (021159451) Problem Hypercholesterolemia (E78.00) Active confirmed Hypercholestero lemia (51017064) Encounters Encounter Location Date Provider Diagnosis [facility], [address] [id number] 10/10/2023 DEX WAYLON PLAN OF TREATMENT Pending Test Test Name [...] Date HNE [address] [place] [address] [phone] [id number] SAM COOK Self - patient is the insured 0 MEDICAL (GENERAL) HISTORY Medical History History ICD Code Hyperlipidemia Polyarthritis Diverticulitis Hospitalization History Reason Date(Month/Year) Diverticulitis - 1 week @ [facility]
--- OUTSIDE RECORDS SUMMARY | 2024-10-09 08:51 | XMS_ITS | Patient Health Record ---
Author Organization [facility] Address [address] [place] [address] Care Team Providers Care Pourer Metal Name Role Phone BROOKLYN BEAVER Unavailable [phone] REASON FOR REFERRAL No Information Encounters Encounter Location Date Provider Diagnosis [facility] [address] [place] [address] 04/16/2024 BROOKLYN BEAVER PLAN OF TREATMENT No Information Insurance Providers Payer Name Payer Address Payer Phone Subscriber Number Group Number Insured Name Patient Relationship to Insured Coverage Start Date Coverage End Date [facility] [address] [facility] [place] [id number] Brayden Newman Self - patient is the insured
== END 2024-10-09 09:08 | disposition home or self-care (01) ==
PROVIDERS: Visit Provider Physician Assistant
DX: Z13.9 Encounter for screening, unspecified (principal); J02.0 Streptococcal pharyngitis

== ENCOUNTER → 2024-10-09 08:33 | Outpatient (BNVA) | payer OTHER, SELFPAY | PROVIDERS: Visit Provider Physician Assistant | DX: J02.0 Streptococcal pharyngitis (principal) | CPT/HCPCS: 87880 ==

== ENCOUNTER 2025-01-07 10:05 | Outpatient (REF) | payer OTHER, SELFPAY | END 2025-01-07 10:06 | disposition home or self-care (01) | LOC: HO.LAB 10:05 | PROVIDERS: Visit Provider Internal Medicine Cardiovascular Disease | DX: I51.89 Other ill-defined heart diseases (principal); R94.31 Abnormal electrocardiogram [ECG] [EKG]; Z79.899 Other long term (current) drug therapy; Z82.49 Family history of ischemic heart disease and other diseases of the circulatory system | CPT/HCPCS: 36415; 82172; 83695; 86141; 93005 ==

== ENCOUNTER 2025-01-07 10:05 | Outpatient (AMB) | payer OTHER, SELFPAY ==
--- OUTSIDE RECORDS SUMMARY | 2024-04-16 11:15 | XMS_ITS ---
Author Organization [facility] [address] Address [address] [facility] [place] [address] Care Team Providers Care Pile Driver Operator Helper Name Role Phone BROOKLYN BEAVER Unavailable [phone] Encounters Encounter Location Date Provider Diagnosis [facility] [address] [facility] [place] [place] [address] 04/16/2024 BROOKLYN BEAVER Plan Of Treatment No Information Progress Notes * Brayden NEWMANDOB:1985 (39 yo M)Acc No.[id number]:04/16/2024 Progress Notes Patient: Brayden KONG Provider: Piedad BEAVER PA-C :1985 A ge:38 Y S ex:Male Date:04/16/2024 Address:[address] [id number] Subjective: * Chief Complaints: * * Medical History: Objective: * Vitals: Assessment: Plan: * Treatment: * Images: Billing Information: * Visit Code: * Procedure Codes: * Electronic signature of SARTHAK BEAVER PA-C, [id number] on 01/07/2025 at 10:48 AM EDT Sign off status: Pending * Provider: Piedad BEAVER PA-C Date: 1 Generated for Breana clinton/Fareyna/eTransmitting on: 0 01/07/2025 10:48 AM EDT
--- NOTE | 2025-01-07 10:14 | A.OFFVIS_ITS ---
Vital Signs 01/07/25 10:15 Height 6 ft 4 in Weight 231 lb 7.766 oz BMI 28.2 BP 122/76 Blood Pressure Location Lt brachial Position Sitting Pulse 65 Intake Visit Reasons: COMMUNICATIONS ATTENDANT/Lopez/Other ill-defined heart diseases Intake Note: New patient fx CAD father uncles had stent starting in the early 's despite being very health diet and exercise Log Cut Off Sawyer Required: No Allergies No Known Allergies Allergy (Verified 10/09/24 08:46) Medication List - Last Reconciled 01/07/25 by Shoaib Kincaid MD albuterol sulfate 90 mcg/actuation 2 puffs inhalation Q4-6H PRN lansoprazole 30 mg PO DAILY HPI Comments Details: Thank you for referring Brayden in cardiology consultation today for cardiovascular risk stratification. He is a 39-year-old male soon to be 40 years old concerned about his underlying risk for atherosclerotic disease given strong family history on his father's side. Patient says his father at age 42, who is a avid marathon runner without any risk factors had required a stent and since then he has had 3 or 4 interventions performed most recently done about a year ago. He said his father never had any significant risk factors. He said he himself is a good runner in and red multiple miles in the past but our recently he has been cutting down in his running and runs about 2-3 miles which is not run in the last few weeks because of store injury. He said he had notices some effort related to running but has no significant symptoms of shortness of breath or chest pain. He denies any palpitation, lightheadedness, syncope. His most recent LDL was 116 mg/dL. He has never had any prior vascular events. He has had multiple male relatives on his father's side had cardiac events in their 40s. [facility] Medical History GERD (gastroesophageal reflux disease) Asthma Hiatal hernia (~08/22/24) Erosive esophagitis History of esophageal ulcer Surgical History Hx of endoscopy Family History Father History of high cholesterol Hx of congenital heart disease Mother Hx of breast cancer Paternal Grandfather Colon cancer Paternal Uncle Colon cancer Father HLD (hyperlipidemia) HTN (hypertension) Heart disease Paternal Uncle Heart disease Social History Household Members: Spouse and Children Housing: House Alcohol intake: current Alcohol intake frequency: holidays/special occasions only Patient Tobacco Use Status: Former Tobacco user e-Cigarette/Vaping Use: Never Used service: No Current occupational status: employed Current occupational exposures/hazards: No Cognitive needs: No Hearing needs: No Vision needs: No Review of Systems Const Denies chills, Denies daytime sleepiness, Denies fatigue, Denies fever(s), Denies frequent falls, Denies poor appetite, Denies snoring, Denies stops breathing during sleep, Denies weakness, Denies weight gain and Denies weight loss Eyes Denies loss of vision ENT Denies dizziness and Denies hearing loss Card Denies chest pain, Denies claudication, Denies leg edema, Denies lightheadedness, Denies palpitations, Denies dyspnea, Denies dyspnea on exertion and Denies orthopnea Resp Denies cough, Denies excessive phlegm production, Denies dyspnea, Denies dyspnea on exertion, Denies snoring and Denies wheezing GI Denies abdominal pain, Denies hematochezia, Denies change in bowel habits, Denies nausea and Denies vomiting Denies dysuria and Denies urinary frequency Musc Denies arthralgias, Denies muscle weakness, Denies numbness and Denies other (frequent falls) Skin/Breast Denies nail changes and Denies rash Neuro Denies Abnormal speech present, Denies dizziness, Denies frequent falls, Denies loss of vision, Denies memory loss, Denies numbness and Denies weakness Psych Denies depression and Denies memory loss Endo Denies fatigue and Denies palpitations Jose/Lymph Reports easy bruising and Reports other (anemia) Aller/Immun Denies wheezing Physical Exam Vital Signs: Last Vital Signs Pulse 65 01/07/25 10:15 BP 122/76 01/07/25 10:15 BMI result Body Mass Index 28.2 Const General: cooperative, comfortable, no acute distress, well developed, alert, awake, Physically active and well groomed Nutritional Appearance: well nourished and overweight Orientation/consciousness: patient oriented x3 Limitations: no limitations HEENT Head: Yes normocephalic and Yes atraumatic Neck Neck: Yes trachea midline, Yes supple and Yes no JVD Carotids: no bruits Resp Effort & Inspection: normal respiratory effort Auscultation: clear to auscultation bilaterally Cardio Jugular venous distension: no JVD Palpation: normal PMI Rate: regular rate Rhythm: regular rhythm Heart sounds: S1 normal heart sound present, S2 normal heart sound present, no click, no gallops, no murmurs and no rubs GI Auscultation: normal bowel sounds Skin General skin exam: no rashes or lesions noted Neuro General: patient oriented x3 and no focal motor deficits Speech: No Abnormal speech present Extrem General: Yes no clubbing, cyanosis or edema Psych Appearance: grossly normal Office Procedures EKG Details: EKG shows normal sinus rhythm with isolated Q-waves in lead 3 which are most likely due to body habitus and suggest pseudo infarct pattern 04437-Jgtzosjjvrvfhmona, Complete Assessment & Plan Assessment & Plan (1) Familial heart disease: Code(s): I51.89 - Other ill-defined heart diseases Category: Medical Plan: Strong family history of premature coronary artery disease in this man with most of the disease is manifesting in her early 40s. Patient is concerned about his risk as he is reaching the age of 40. His LDL is not significantly abnormal and he does not have any other significant lipid parameters to suggest therapy at this point time. I would suggest more novel will lipid markers and vascular inflammatory markers to further guide therapeutic decisions. Will also suggest him to undergo coronary calcium score to evaluate for premature atherosclerotic disease in him that may also guide therapy. This was discussed with him in details. He is agreeable to pursue these test in near future. Also suggest an echocardiogram agreement small Q-waves in lead 3 to assess for cardiac structure and function. Recommend him to participate in regular physical activity. Advised to call with persistent symptoms with exercise if they did not dissipate to further workup with a stress test if needed. Will follow up in the clinic if need be. Thank you for allowing me to partake in his care Orders: Orders CT Coronary Calcium Score 1 Week Lipoprotein A Today I51.89 - Other ill-defined heart diseases CRP High Sensitivity Today I51.89 - Other ill-defined heart diseases Apolipoprotein B Today I51.89 - Other ill-defined heart diseases CA echo transthoracic complete Today R94.31 - Abnormal electrocardiogram [ECG] [EKG] Coding Level of Care Code New Pt Level 4 (60103) Complex EM visit Add On G2211 Diagnoses Familial heart disease I51.89 CPT Codes EKG - CPT: 80396-Wqvixoowqfjsnnoyl, Complete ([id number])
[2025-01-07 10:15] VITALS: BP 122/76; PULSE 65; BMI 28.2
--- OUTSIDE RECORDS SUMMARY | 2025-01-07 10:48 | XMS_ITS | Data Portability ---
Author Organization [facility], [address] Address [address] [place] [address] Care Team Providers Care Major Account Representative Name Role Phone DEX CONNORS Primary Care Provider Assessment No assessment recorded. Plan of Treatment Reminders Order Date Submit Date Provider Last Modified By Organization Details Last Modified Time Details Appointments None recorded. Lab rapid strep group A, throat 2022 023 [email or web address] [facility], [address] [place] [address], [phone], 10:38:22 Referral None recorded. Procedures None recorded. Surgeries None recorded. Imaging None recorded. Medication Orders amoxicillin 875 mg tablet 2022 023 Z[id number], [address] [place], [place], [phone], 10:38:29 Patient TargetsNo targets recorded. Patient Instructions Encounter Date Encounter Id Patient Instructions Last Modified By Organization Details Last Modified Time 12/29/2022 [id number] sore throat: car e instructions [email or web address] Not available 12/29/2022 10:38:20 strep throat: care instructions [email or web address] Not available 12/29/2022 10:38:20 Rest. Drink plenty of fluids. Take the antibiotic as prescribed. Gargle with warm salty water several times daily. Obtain a new toothbrush in 2 days. See printed instructions. Follow-up with your doctor if no improvement in a few days. Seek Emergency Medical evaluation for any worsening symptoms. [email or web address] Not available 12/29/2022 10:39:24 Reason for Referral None Reported. Results Created Date Observation Date Name Description Value Unit Range Abnormal Flag Note LastModifiedBy Organization Detail LastModifiedTime 12/30/1912/29/2022 rapid strep group A, throa t Unknown Analyte Normal = Negati ve Not Available [address] [address] [place], [address], 12/29/2022 09:47:51 12/30/1912/29/2022 rapid strep group A, throa t Unknown Analyte positi ve Not Available [address] [address] [place], [address], 12/29/2022 09:47:51 Result Notes None recorded. Problems Name Problem SNOMED Code Status Onset Date Resolution Date Notes Provider Name and Address Organization Details Recorded Time Gastroesophage al reflux disease 128002930 Active 2022 [facility] 09:47:05 Problem Notes None recorded. Medical Equipment None Reported. Allergies No known drug allergies Medications Name Sig Start Date Stop Date Status Note LastModified by Organization Details LastModified Time amoxicillin 875 mg tablet Take 1 tablet every 12 hours by oral route for 10 days. 023 active Not Available Not Available Not Avai lable pantoprazole active Not Available Not Available Not Available Vitals Date Recorded Body height Body mass index (BMI) Body weight Oxygen saturation Oxygen saturation in Arterial blood by Pulse oximetry Heart rate Respiratory rate Body temperature Systolic And Diastolic Provider Name and Address Organization Details Last Updated DateTime 3 193.04 cm 26.8 kg/m2 79937.3 2 g 99 % 99 % 73 /min 16 /min 98.2 [degF] 130/83 mm[Hg] [facility] 09:50:31 Social History Question Answer Notes LastModified by Organizat ion Details LastModified Time Tobacco Smoking Status Never Smoker [facility] 12/29/2022 09:47:20 Have You Recently Traveled Abroad? No Information not available 12/29/2022 Sex: Unknown Functional Status Question Answer Note LastModified by Organizat ion Details LastModified Time Do you use any illicit or recreational drugs? No Information not available 12/29/2022 Do you or have you ever used any other forms of tobacco or nicotine? No Information not available 12/29/2022 What is your level of alcohol consumption? Moderate Information not available 12/29/2022 Are you currently employed? Yes Information not available 12/29/2022 Mental Status None recorded. Family History Relationship Description Onset Age of this Age Resolved Age Notes LastModified by Organization Details LastModified Time Father No current problems or disability Not available 12/29 09:47:12 Mother No current problems or disability Not available 12/29 09:47:12 Medical History No medical history recorded. Past Encounters Encounter ID Performer Location Encounter Start Date Encounter Closed Date Diagnosis/Indication Diagnosis SNOMED-CT Code Diagnosis ICD10 Code Diagnosis Note [id number] [facility] [facility] [place] [address] 10/14/2020 10:44:29 10/14/2020 11:42:28 [id number] [address] [place] [address] 12/27/2018 09:38:10 12/27/2018 10:19:22 [id number] Gaviota Oropeza MD [address] [place] [address] 12/29/2022 08:17:54 12/29/2022 10:41:13 Streptococcal sore throat 61085008 J02.0 Health Concerns Section Related Observation LastModified by Organization Detai ls LastModified Time None Recorded Concern Status LastModified by Organization Details LastModified Time None Recorded Advance Directives Directive None Recorded Payers Insurance Date Sequence Insurance Name Policy Number Policy Gross Covered Member ID Gross Member ID Guarantor Name 12/29/[address] [place] [address] [id number] Brayden Newman [id number] Brayden Trent Notes Date Note Type Note Provider Name and Address Organization Details Recorded Time 3 text/html Sore throatReported bypatient.Source of patient informationInformation obtained from patient; Patient arrived at Urgent Care ambulatory Location:throat Severity:moderate Quality:hurts to swallow Onset/Timin days Associated Symptoms:no cough; no sputum production; no shortness of breath; no wheezing; no sinus pain; no vomiting; no nausea; No hoarseness Context:no sick contacts; non-smokerNotes:37 year old male presenting for evaluation of a sore throat, body aches, fatigue and chills getting worse for the past 3 days. No fever, headache, rash, stiff neck, swollen glands, nasal congestion, ear pain, cough, chest pain, shortness of breath or GI symptoms. Gaviota Oropeza MD [address] [place], [place] [address], [address], [place] - [facility] 12/29/2022 10:44:44
--- OUTSIDE RECORDS SUMMARY | 2025-01-07 10:48 | XMS_ITS | Clinical Summary ---
Author Organization [facility] Address [address] [place] [address] Care Team Providers Care Tea Tree Farm Worker Name Role Phone Jax Bocanegra MD Primary Care Provider Unavail able Surgical History Surgery Date Site/Laterality Comments UPPER GASTROINTESTINAL ENDOSCOPY 12/24/13 Dr Chahal PROCEDURE: MN UPPER GI ENDOSCOPY PERFORMED; COMMENT: severe distal esophagitis MULTIPLE TOOTH EXTRACTIONS PROCEDURE: HISTORICAL DENTAL EXTRACTION ESOPHAGOGASTRODUODENOSCOPY 06/16/2015 PROCEDURE: MN ESOPHAGOGASTRODUODENOSCOPY TRANSORAL DIAGNOSTIC; COMMENT: Grade D esophagitis distal esophagus, hiatal hernia Medical History Medical History Date Comments Unspecified asthma(493.90) 01/10/2007 DX:Un specified asthma(493.90) Allergic rhinitis, cause unspecified 01/10/2007 DX:Allergic rhinitis, cause unspecified Substance abuse ([facility] [place] V24 , [facility] [place] V28) 12/16/2010 DX:Substance abuse ([facility] [place]) Esophageal reflux DX:Esophageal reflux Family History Medical [...] 5 Years) and At-Risk Patients (6 to 49 Years) (2 of 2 - PCV) 02/03/2019 02/03/2018 Cholesterol Screening (Lipid Panel) 05/25/2022 Depression Screening 05/25/2022 HIV Screening 05/25/2022 Hepatitis C Screening 05/25/2022 Social Influencers of Health Screening 05/25/2022 COVID-19 Vaccine (1 - season) 2024 Influenza Vaccine (#1) 2025 0, 04/11/2015, 04/22/2011, Additional history exists DTaP,Tdap,and [...] age to complete this topic Care Teams Tea Tree Farm Worker Relationship Specialty Start Date End Date Jax Bocanegra MD PCP - General Internal Medicine 01/27/15
== END 2025-01-07 10:48 | disposition home or self-care (01) ==
LOC: HO.HCS 10:05
PROVIDERS: Visit Provider Internal Medicine Cardiovascular Disease
DX: I51.89 Other ill-defined heart diseases (principal)
CPT/HCPCS: 93010; 99204; G2211

== ENCOUNTER 2025-02-07 09:23 | Outpatient (AMB) | payer OTHER, SELFPAY ==
--- OUTSIDE RECORDS SUMMARY | 2024-04-16 11:15 | XMS_ITS ---
Author Organization [facility] [address] Address [address] [facility] [place] [address] Care Team Providers Care Hemodialysis Technician Name Role Phone BROOKLYN BEAVER Unavailable [phone] Encounters Encounter Location Date Provider Diagnosis [facility] [address] [facility] [place] [address] 04/16/2024 BROOKLYN BEAVER Plan Of Treatment No Information Progress Notes * Brayden NEWMANDOB:1985 (39 yo M)Acc No.[id number]:04/16/2024 Progress Notes Patient: Brayden KONG Provider: Piedad BEAVER PA-C :1985 A ge:38 Y S ex:Male Date:04/16/2024 Address:[address] [id number] Subjective: * Chief Complaints: * * Medical History: Objective: * Vitals: Assessment: Plan: * Treatment: * Images: Billing Information: * Visit Code: * Procedure Codes: * Electronic signature of SARTHAK BEAVER PA-C, [id number] on 02/07/2025 at 09:56 AM EDT Sign off status: Pending * Provider: Piedad BEAVER PA-C Date: 1 Generated for Breana clinton/Fareyna/eTransmitting on: 0 02/07/2025 09:56 AM EDT
--- NOTE | 2025-02-07 09:29 | AM.OFFWIN_ITS ---
Intake Vital Signs 02/07/25 09:33 Height 6 ft 4 in Weight 233 lb BMI 28.4 BP 138/76 Blood Pressure Location Lt brachial Position Sitting Pulse 73 Pulse Source Pulse Oximeter Temp 98.2 F Temp Source Oral Pulse Oximetry (%) 97 Oxygen Delivery Method Room Air Intake Visit Reasons: EP Sore throat, cough Intake Note: presents with a sore throat, pain swallowing, productive cough, fatigue. h/o strep throat Patient Tobacco Use Status: Former Tobacco user Allergies No Known Allergies Allergy (Verified 02/07/25 09:30) Do you need a note to return to daycare/school/sports/work: No HPI HPI Comments History of Present Illness Details History - The patient is a 39-year-old male pres enting with a sore throat, chills, cough, and fatigue. - Symptoms began two days ago, with a so re throat and congestion. - He has a history of frequent strep thr oat infections in the past. - Has a runny nose, sneezing, and body a ches. - Self-medication with Tylenol and Motri n may have masked fever; mild cough with non-green mucus noted. - Family members have had similar sympto ms, but none as severe. - He denies fever or chills. He denies C P, SOB, abd pain, n/v/d. Physical Exam General: Cooperative, healthy appearing, comfortable and no acute distress Orientation/consciousness: Patient oriented x3 Limitations: No limitations Head: Normal to inspection Ears: Hearing grossly normal bilaterally, external ears normal and TM's normal bilaterally Nose: Normal external nose present, normal nares present, and no nasal discharge present. Face and sinus: Sinuses nontender to palpation. Mouth: Normal oral and palatal mucosa present and moist mucous membranes noted. Throat: Tonsils normal. Uvula is midline. Posterior oropharynx with erythema and no exudates. Eyes: Appearance normal, both eyes and all related structures Neck: Normal visual inspection, full ROM. No lymphadenopathy noted. Respiratory: Clear to auscultation bilaterally. Normal respiratory effort, able to speak in complete sentences. No respiratory distress, not tachypneic, no tripod positioning and no use of accessory muscles. Cardiovascular: Regular rate and rhythm. Normal S1 and S2 Skin: No rashes or lesions noted Patient was informed and verbally consented to the use of an ambient scribe for clinic note documentation during this visit [facility] Medical History GERD (gastroesophageal reflux disease) Asthma Hiatal hernia (~08/22/24) Erosive esophagitis History of esophageal ulcer Surgical History Hx of endoscopy Family History Father History of high cholesterol Hx of congenital heart disease Mother Hx of breast cancer Paternal Grandfather Colon cancer Paternal Uncle Colon cancer Father HLD (hyperlipidemia) HTN (hypertension) Heart disease Paternal Uncle Heart disease Social History Household Members: Spouse and Children Housing: House Alcohol intake: current Alcohol intake frequency: holidays/special occasions only Patient Tobacco Use Status: Former Tobacco user e-Cigarette/Vaping Use: Never Used service: No Current occupational status: employed Current occupational exposures/hazards: No Cognitive needs: No Hearing needs: No Vision needs: No Review of Systems Const All systems reviewed & are unremarkable except as noted in HPI and below Physical Exam Vital Signs: Last Vital Signs Temp 98.2 F 02/07/25 09:33 Pulse 73 02/07/25 09:33 BP 138/76 02/07/25 09:33 Pulse Ox 97 02/07/25 09:33 Oxygen Delivery Method Room Air 02/07/25 09:33 BMI result Body Mass Index 28.4 Assessment & Plan Assessment & Plan (1) URI with cough and congestion: Code(s): J06.9 - Acute upper respiratory infection, unspecified Plan Most likely URI vs viral illness vs covid vs flu vs RSV Rapid strep was negative in the office Plan - COVID-19, influenza, and RSV panel ordered to identify the viral cause. - Prescribed symptomatic relief with cough medicine, nasal spray, and decongestant. - Advised that symptoms are likely viral. - VSS, pt well appearing Orders: Orders SARS-CoV2/FLU/RSV Today R09.89 - Other specified symptoms and signs involving the circulatory and respiratory systems Medications: New fluticasone propionate 50 mcg/actuation administer into each nostril 1 spray intranasal Q12H 16 grams 0RF benzonatate 100 mg PO bid-tid PRN 21 caps 0RF Cough 7 days cetirizine-pseudoephedrine 5-120 mg ER 1 tab PO BID 14 tabs 0RF 7 days Coding Level of Care Code Est Pt Level 3 (62722) Diagnoses URI with cough and congestion J06.9
[2025-02-07 09:33] VITALS: BP 138/76; PULSE 73; TEMP 36.8; O2SAT 97; BMI 28.4
--- OUTSIDE RECORDS SUMMARY | 2025-02-07 09:56 | XMS_ITS | Clinical Summary ---
Author Organization [facility] Address [address] [place] [address] Care Team Providers Care Direct Mail Coordinator Name Role Phone Jax Bocanegra MD Primary Care Provider Unavail able Surgical History Surgery Date Site/Laterality Comments UPPER GASTROINTESTINAL ENDOSCOPY 12/24/13 Dr Chahal PROCEDURE: CT UPPER GI ENDOSCOPY PERFORMED; COMMENT: severe distal esophagitis MULTIPLE TOOTH EXTRACTIONS PROCEDURE: HISTORICAL DENTAL EXTRACTION ESOPHAGOGASTRODUODENOSCOPY 06/16/2015 PROCEDURE: CT ESOPHAGOGASTRODUODENOSCOPY TRANSORAL DIAGNOSTIC; COMMENT: Grade D esophagitis distal esophagus, hiatal hernia Medical History Medical History Date Comments Unspecified asthma(493.90) 01/10/2007 DX:Un specified asthma(493.90) Allergic rhinitis, cause unspecified 01/10/2007 DX:Allergic rhinitis, cause unspecified Substance abuse ([facility] V24 , [facility] V28) 12/16/2010 DX:Substance abuse ([facility]) Esophageal reflux DX:Esophageal reflux Family [...] 02/03/2019 02/03/2018 Cholesterol Screening (Lipid Panel) 05/25/2022 HIV Screening 05/25/2022 Hepatitis C Screening 05/25/2022 Social Influencers of Health Screening 05/25/2022 COVID-19 Vaccine ( - season) 2024 Depression Screening 06/27/2024 Influenza Vaccine (#1) 2025 0, 04/11/2015, 04/22/2011, [...] age to complete this topic Care Teams Direct Mail Coordinator Relationship Specialty Start Date End Date Jax Bocanegra MD PCP - General Internal Medicine 01/27/15
== END 2025-02-07 10:24 | disposition home or self-care (01) ==
PROVIDERS: Visit Provider Physician Assistant Medical
DX: J06.9 Acute upper respiratory infection, unspecified (principal)

== ENCOUNTER 2025-02-07 09:23 | Outpatient (REF) | payer OTHER, SELFPAY ==
[2025-02-07 15:12] LABS: Resp Syncy Virus RNA Qual PCR NEGATIVE (Negative); SARS COV2 PCR INHOUSE POSITIVE (Negative)
== END 2025-02-07 09:24 | disposition home or self-care (01) ==
LOC: HO.LNP 09:23
PROVIDERS: Visit Provider Physician Assistant Medical
DX: J06.9 Acute upper respiratory infection, unspecified (principal); R09.89 Other specified symptoms and signs involving the circulatory and respiratory systems; R05.9 Cough, unspecified; R53.83 Other fatigue
CPT/HCPCS: 87637

== ENCOUNTER → 2025-02-08 08:03 | Outpatient (REF) | payer OTHER, SELFPAY ==
--- NOTE | 2025-02-08 08:05 | CA_ITS ---
Transthoracic Echocardiogram Patient (Last, First, Middle): Brayden Newman, Gender: Male Date of : 1985 Age: 39 Procedure Date: 02/08/2025 Procedure Type: Transthoracic Echocardiogram Location: OP Height: 193. cm Weight: 104.33 kg BSA: 2.35 m2 Heart Rate: 73 bpm BP: 128 / 80 mmHg Order Manager: ROSEMARIE Referring MD: Shoaib Kincaid MD Symptoms: R94.31 - Abnormal electrocardiogram [ECG] [EKG] Study Quality: Adequate ECG Rhythm: Sinus Conclusions: - Normal left ventricular size, thickness, and systolic function. The visually estimated ejection fraction is between 60-65%. There is evidence of regional wall motion abnormalities. Diastolic function is normal for age. - Mildly increased right ventricular cavity size. There is normal right ventricular systolic function. Findings Left Ventricle Normal left ventricular size, thickness, and systolic function. The visually estimated ejection fraction is between 60-65%. There is evidence of regional wall motion abnormalities. Diastolic function is normal for age. Wall Motion Rest Echo Findings The basal inferior segment is akinetic. Right Ventricle Mildly increased right ventricular cavity size. There is normal right ventricular systolic function. Atria The left atrium is normal in size. The right atrium is mildly dilated. Aortic Valve Normal aortic valve structure and function. There is no aortic valve stenosis. There is no aortic valve regurgitation. Mitral Valve Normal mitral valve structure and function. There is no mitral valve regurgitation. There is no mitral valve stenosis. Pulmonic Valve The pulmonic valve is normal. There is no pulmonic valve regurgitation. Tricuspid Valve Normal tricuspid valve structure and function. There is no tricuspid valve regurgitation. Normal right atrial pressure. There is no evidence of pulmonary hypertension. Great Vessels All visible segments of the aorta are normal in size. The visualized portions of the pulmonary artery and branches are normal. Venous The inferior vena cava is normal in size and collapses greater than 50% with inspiration. Pericardium/Pleural There is no evidence of pericardial effusion. Prior Study Comparison No prior study available for comparison. Measurements 2D Linear Measurements IVSd: 0.78 0.6-0.9/0.6-1.0 cm LVIDd: 5.42 3.9-5.3/4.2-5.9 cm LVIDd Index: 2.31 2.4-3.2/2.2-3.1 cm/m2 LVIDs: 3.62 2.0-3.6 cm LVPWd: 0.92 0.7-1.1 cm LA Diam: 3.90 2.7-3.8/3.0-4.0 cm LAIDs Index: 1.66 1.5-2.3 cm/m2 LV Mass: 209.95 67-162/88-224 g LV Mass Index: 89.34 43-95/49-115 g/m2 LVOT Diam: 2.30 3.0+(-)1.3 cm 2D Systolic Function EF 4C: 62.80 >55% EF 2C: 59.50 >55% EF BiP: 62.00 >55% Mitral Valve MV Pk E: 0.82 MV PK A: 0.54 MV Decel Time: 179.00 E/A: 1.50 E'Lateral: 13.40 E'Medial: 10.30 E/E' Med: 7.90 E/E' Lat: 6.10 PHT: 52.00 MVA PHT: 4.23 Decel Dale: 4.58 Aortic Valve AoV Pk Nash: 1.49 AoV Mn Nash: 1.03 AoV VTI: 0.29 AoV Pk Grad: 9.00 Aov Mn Grad: 5.00 OLESYA Cont.VTI: 3.30 LVOT LVOT Pk Nash: 1.27 LVOT Mn Nash: 0.85 LVOT VTI: 0.23 LVOT Pk Grad: 6.00 LVOT Mn Grad: 4.00 LVOT Diam: 2.30 LVOT Area: 4.15 Diastolic Function MV Pk E: 0.82 MV Pk A: 0.54 E/A: 1.50 E'Medial: 10.30 E/E' Med: 7.90 E' Laterial: 13.40 E/E' Lat: 6.10 Right Ventricle TAPSE (mm): 30.10 TVS' Nash: 10.70 Tricuspid Valve TR Pk Nash: 2.23 TR Pk Grad: 20.00 RA Press: 3.00 RVSP: 23.00 Great Vessels Aorta Sinus of Valsalva: 3.60 2.0-3.5 cm Ao Asc: 2.90 2.1-3.4 cm Ao Arch: 2.60 Pulmonary Valve PV Pk Nash: 1.24 Peak PV Grad: 6.00 Updated in Other Vendor System with Status of Final Gama Barrera MD electronically signed on 02/09/2025 10:02:04 PM with status of Final
== END ==
LOC: HO.CARD 08:03
PROVIDERS: Visit Provider Internal Medicine Cardiovascular Disease
DX: R94.31 Abnormal electrocardiogram [ECG] [EKG] (principal)
CPT/HCPCS: 93306

== ENCOUNTER → 2025-02-08 08:05 | Outpatient (BNV) | payer OTHER, SELFPAY | PROVIDERS: Visit Provider Internal Medicine Cardiovascular Disease | DX: I51.89 Other ill-defined heart diseases (principal) | CPT/HCPCS: 93306 ==

== ENCOUNTER → 2025-03-25 08:28 | Outpatient (REF) | payer OTHER, SELFPAY ==
--- OUTSIDE RECORDS SUMMARY | 2024-04-16 11:15 | XMS_ITS ---
Author Organization [facility] [address] Address [address] [facility] [place] [address] Care Team Providers Care Compression Molding Machine Tender Name Role Phone BROOKLYN BEAVER Unavailable [phone] Encounters Encounter Location Date Provider Diagnosis [facility] [address] [place] [address] 04/16/2024 BROOKLYN BEAVER Plan Of Treatment No Information Progress Notes * Brayden NEWMANDOB:1985 (39 yo M)Acc No.[id number]:04/16/2024 Progress Notes Patient: Brayden KONG Provider: Piedad BEAVER PA-C :1985 A ge:38 Y S ex:Male Date:04/16/2024 Address:[address] [id number] Subjective: * Chief Complaints: * * Medical History: Objective: * Vitals: Assessment: Plan: * Treatment: * Images: Billing Information: * Visit Code: * Procedure Codes: * Electronic signature of SARTHAK BEAVER PA-C, [id number] on 03/25/2025 at 08:51 AM EDT Sign off status: Pending * Provider: Piedad BEAVER PA-C Date: 1 Generated for Breana clinton/Fareyna/eTransmitting on: 0 03/25/2025 08:51 AM EDT
--- NOTE | ~2025-03-25 | NM_ITS ---
EXERCISE MYOCARDIAL PERFUSION STUDY INDICATION: Coronary artery disease TECHNIQUE: The patient was brought in for an exercise perfusion study on 03/25/2025. Patient performed exercise as per Dylan protocol and was injected 35 mCi of sestamibi once target heart rate was achieved. Images were obtained using the SPECT gamma camera interlaced with the gating device. Images were obtained in supine position. Resting perfusion study was performed on 03/26/2025. Patient was administered 35 mCi of sestamibi intravenously at rest. Images were then obtained in supine position. Total DLP 88 mGy-cm. Images were processed with the software and compared side to side in short axis, horizontal long axis and vertical long axis views. FINDINGS: Raw aquisition reviewed. The stress perfusion study showed diminished tracer uptake along the anterior wall and the inferior wall. There is improvement with CT attenuation correction and hence most likely artifactual. The gated study shows normal LV systolic function with calculated LVEF of 59%. LV cavity is normal in size. The gated study shows normal wall thickening and contraction of segments. Resting study shows decreased tracer uptake along the anterior inferior wall. There is improvement with CT attenuation correction and hence likely all artifactual. Gating at rest reveals normal wall motion with ejection fraction at 51%. The findings are consistent with no clear reversible or fixed perfusion defects. NM/PA cardiolite stress test IMPRESSION: 1. Myocardial perfusion imaging study shows likely normal myocardial perfusion. 2. Gated LVEF is 59% during stress and 51% during rest. 3. Transient ischemic dilatation not present. EKG component of the test reported separately. Electronically signed by: Adin Rivera MD 03/27/2025 11:05 AM EDT
--- NOTE | 2025-03-25 08:30 | CA_ITS ---
Acquisition Time: 2025-03-25 08:46:38 Total Exercise Time: 00:10:16 Test Indications: CAD Medications: ALBUTEROL LANSOPRAZOLE Protocol: OMID Max HR: 164 BPM 90% of Pred: 181 BPM Max BP: 174/64 mmHG Max Work Load: 12.1 METS Exercise stress test with exercise 10 min 16 sec of Omid protocol, achieving 86% MPHR, with mild sob, no chest discomfort, with isolated PVCs, with normotensive response to exercise, without EKG changes meeting criteria for ischemia. Nuclear images pending. Test reviewed with Dr Rivera. Referred By: Shoaib Kincaid Electronically Signed By: LUCI KNOX
--- OUTSIDE RECORDS SUMMARY | 2025-03-25 08:51 | XMS_ITS | Patient Health Record ---
Author Organization [facility] Address [address] [place] [address] Care Team Providers Care Paper Bag Press Operator Name Role Phone BROOKLYN BEAVER Unavailable [phone] Reason For Referral No Information Plan Of Treatment No Information Insurance Providers Payer Name Payer Address Payer Phone Subscriber Number Group Number Insured Name Patient Relationship to Insured Coverage Start Date Coverage End Date [facility] [address] [facility] [id number] [phone] [id number] Brayden Newman Self - patient is the insured
--- OUTSIDE RECORDS SUMMARY | 2025-03-25 08:51 | XMS_ITS | Clinical Summary ---
Author Organization [facility] Address [address] [place] [address] Care Team Providers Care Technology Intern Name Role Phone Jax Bocanegra MD Primary Care Provider Unavail able Surgical History Surgery Date Site/Laterality Comments UPPER GASTROINTESTINAL ENDOSCOPY 12/24/13 Dr Chahal PROCEDURE: [place] UPPER GI ENDOSCOPY PERFORMED; COMMENT: severe distal esophagitis MULTIPLE TOOTH EXTRACTIONS PROCEDURE: HISTORICAL DENTAL EXTRACTION ESOPHAGOGASTRODUODENOSCOPY 06/16/2015 PROCEDURE: [place] ESOPHAGOGASTRODUODENOSCOPY TRANSORAL DIAGNOSTIC; COMMENT: Grade D esophagitis distal esophagus, hiatal hernia Medical History Medical History Date Comments Unspecified asthma(493.90) 01/10/2007 DX:Un specified asthma(493.90) Allergic rhinitis, cause unspecified 01/10/2007 DX:Allergic rhinitis, cause unspecified Substance abuse ([facility] V24 , [facility] V28) 12/16/2010 DX:Substance abuse ([facility]) Esophageal reflux DX:Esophageal reflux Family History Medical [...] 05/25/2022 Social Influencers of Health Screening 05/25/2022 Depression Screening 06/27/2024 COVID-19 Vaccine (1 - season) 2025 Influenza Vaccine (#1) 2025 0, 04/11/2015, 04/22/2011, [...] age to complete this topic Care Teams Technology Intern Relationship Specialty Start Date End Date Jax Bocanegra MD PCP - General Internal Medicine 01/27/15
== END ==
LOC: HO.CARD 08:28
PROVIDERS: Visit Provider Internal Medicine Cardiovascular Disease
DX: R93.1 Abnormal findings on diagnostic imaging of heart and coronary circulation (principal); I51.89 Other ill-defined heart diseases; I25.10 Atherosclerotic heart disease of native coronary artery without angina pectoris
CPT/HCPCS: 78452; 93017; A9500

== ENCOUNTER → 2025-03-25 08:30 | Outpatient (BNV) | payer OTHER, SELFPAY | PROVIDERS: Visit Provider Nurse Practitioner Family | DX: I49.3 Ventricular premature depolarization (principal) | CPT/HCPCS: 78452; 93016; 93018 ==